=== PATIENT | female | born 1985 | race African-American/Black ===

== ENCOUNTER 2021-06-26 21:55 | Emergency (ER) | payer MEDICARE, SELFPAY ==
[2021-06-26 22:01] VITALS: BP 112/75; PULSE 67; RESP 16; TEMP 36.8; O2SAT 100
--- NOTE | 2021-06-26 23:38 | ED.WOUNDLAC ---
HPI - Wound/Laceration General Chief Complaint: Wound/Laceration Stated Complaint: finger laceration Time Seen by Provider: 06/26/21 23:24 Source: patient Mode of arrival: ambulatory Limitations: no limitations History of Present Illness HPI narrative: This is a 36-year-old female that presents to the emergency department for laceration to the right first finger sustained just prior to arrival. Reports she accidentally cut her finger on her mom. She was concerned that she is not up-to-date on her tetanus vaccine. Reports pain to the area. Bleeding is under control. Denies decreased range of motion or numbness. Related Data Allergies Allergy/AdvReac Type Severity Reaction Status Date / Time No Known Allergies Allergy Unknown Unverified 06/26/21 22:06 Review of Systems Review of Systems: CONSTITUTIONAL: Denies fever SKIN: Reports laceration All systems reviewed & are unremarkable except as noted in HPI and below PMFSH Past Medical History Medical History (Updated 06/26/21 @ 23:40 by Sharri Greenberg PA-C) No active medical problems Social History Social History (Updated 06/26/21 @ 23:40 by Sharri Greenberg PA-C) Substance use: never Exam Narrative: GENERAL: Well-appearing, well-nourished, and in no acute distress. HEAD: Normocephalic, atraumatic. EYES: EOMI. EXTREMITIES: Normal range of motion. No edema or obvious deformity. Normal sensation. 2 cm linear superficial laceration to the right first finger distal phalanx SKIN: Warm, dry, no rash. NEURO: No focal deficits. Alert and oriented x3. PSYCH: Normal mood and affect Course Vital Signs Vital signs: Vital Signs Temperature 98.3 F 06/26/21 22:01 Pulse Rate 67 06/26/21 22:01 Respiratory Rate 16 06/26/21 22:01 Blood Pressure 112/75 06/26/21 22:01 Pulse Oximetry 100 06/26/21 22:01 Temperature 98.3 F 06/26/21 22:01 Pulse Rate 67 06/26/21 22:01 Respiratory Rate 16 06/26/21 22:01 Blood Pressure 112/75 06/26/21 22:01 Pulse Oximetry 100 06/26/21 22:01 Procedures Laceration Laceration 1: Date: 06/26/21 Time: 23:41 Site: hand Side (If applicable): right Size (cm): 2 Description: linear Depth: simple, single layer Local Anesthetic: none Pre-repair: irrigated ====== Skin Level ====== ====== Subcutaneous Layer ====== ====== Muscle Layer ====== ====== Tendon Layer ====== Dressing: Wound was cleansed and bandaged. It was fairly superficial so did not require any suturing or Dermabond MDM - Wound/Laceration MDM Narrative Medical decision making narrative: Patient presents to the emergency department for a laceration to right first finger sustained just prior to arrival. Wound was irrigated. Patient was updated on tetanus. The wound was fairly superficial so did not require any suturing or Dermabond. Patient was educated on wound care. She is to follow-up with her primary care doctor. She was given warnings to return to the ER Critical Care Time Critical Care Time Critical Care Time: No Discharge Plan Discharge Clinical Impression: Laceration Patient Disposition: Home, Self-Care Condition: Stable Instructions: Laceration (ED) Additional Instructions: Return to the emergency department if you experience fever, redness or swelling of your wound, abnormal drainage from your wound, or any other symptoms that are concerning to you. Apply antibiotic ointment daily. Do not soak the wound. Clean with mild soap and water daily Follow-up with your primary care doctor for wound check Follow-up/Referrals: UNKNOWN,DOCTOR [Primary Care Provider] - 1 Week
[2021-06-26] MEDS: TETANUS,DIPHTHERIA,AC PERTUSSIS ADULT (0.5 ML) BOOSTRIX IM (23:51)
[2021-06-26 23:59] VITALS: BP 110/64; PULSE 88; RESP 16; O2SAT 99
== END 2021-06-27 | disposition home or self-care (01) ==
LOC: ANHED 23:44
PROVIDERS: Emergency Provider Emergency Medicine
DX: S61.011A Laceration without foreign body of right thumb without damage to nail, initial encounter (principal); Z23 Encounter for immunization; W26.8XXA Contact with other sharp object(s), not elsewhere classified, initial encounter
CPT/HCPCS: 90471; 90715; 99282